=== PATIENT | male | born 1960 | race Caucasian/White ===

== ENCOUNTER 2023-12-05 10:40 | Emergency (ER) | payer OTHER, SELFPAY ==
[2023-12-05 10:54] VITALS: BP 131/79; PULSE 55; TEMP 36.9; O2SAT 99; BMI 23.4
--- NOTE | 2023-12-05 11:02 | XR_ITS ---
The [address] [address] Patient Name: FITZ RUVALCABA MRN: [id number] date: 1960 Sex: M Assigned Patient Location: ER Current Patient Location: ER Accession/Order Number: [id number] Exam Date: 12/05/2023 11:05 Report Date: 12/05/2023 11:22 At the request of: TAY DINERO Procedure: XR hand RT 2V PROCEDURE: XR hand RT 2V HISTORY: foreign body hand thumb COMPARISON: None. FINDINGS: BONES:Multifocal mild degenerative joint disease. No fracture, dislocation, bone lesion. SOFT TISSUES:No radiopaque foreign body with specific attention to pulmonary hand at base of thumb. EFFUSION:None visible. OTHER: Negative. XR/XR hand RT 2V IMPRESSION: 1. No radiopaque foreign body. Electronically authenticated by: MICHAEL FARRELL Date: 12/05/2023 11:22
[2023-12-05] MEDS: LIDOCAINE HCL 1% 100 MG/10 ML MDV INJ (12:48)
[2023-12-05] MEDS: ADACEL DIPH,PERTUSS(ACELL),TET VAC/PF 0.5 ML ADULT SYRINGE IM (13:37)
--- NOTE | 2023-12-05 15:09 | ED_ITS ---
HPI - Skin/Abscess/Foreign Bdy General Chief complaint: Skin/Abscess/Foreign Body Stated complaint: SPLINTER, RIGHT HAND Time Seen by Provider: 12/05/23 11:00 Source: patient Mode of arrival: walk-in Limitations: no limitations History of Present Illness HPI narrative: The patient is coming to the ER after he had a splinter inside his hand when he was cutting some wood saturday 4 days ago . The patient does not remember the last time he had a tetanus booster He is complaining of pain at the site he did try taking it off by himself by using a knife Related Data Previous Rx's ?Medication ?Instructions ?Recorded amoxicillin 875 mg-potassium 1 tab PO BID #14 tabs 12/05/23 clavulanate 125 mg tablet ibuprofen 600 mg tablet 600 mg PO Q8H PRN pain #20 tabs 12/05/23 Allergies Allergy/AdvReac Type Severity Reaction Status Date / Time No Known Drug Allergies Allergy Verified 12/05/23 10:54 Review of Systems ROS Status of ROS 10 or more systems reviewed and unremark able except as noted in history and below PFSH PFSH Social History Little interest or pleasure in doing things: not at all Feeling down, depressed, or hopeless: not at all Exam Narrative Exam Narrative: Nurses notes and vital signs reviewed and patient is not hypoxic. Right hand examination: Patient have tenderness upon palpation of the area just proximal to the metacarpophalangeal joint of the first finger and the patient have an area of hardening of the skin and tenderness, with a entrance wound General: Well-appearing and in no apparent distress. Skin: Warm, dry, no pallor noted. No rash. Head: Normocephalic, atraumatic. Neck: Supple, non-tender. Eye: Pupils are equal, round and EOMI. No scleral icterus. Ears, Nose, Mouth, and Throat: TM are clear, no nasal mucosal hypertrophy. Oral mucosa is moist, no posterior oropharynx erythema, uvula is mid-line Cardiovascular: Regular Rate and Rhythm without murmur, gallop or rub. Respiratory: No accessory muscle use or respiratory distress. Lungs are clear to auscultation, no wheezing, rales or rhonchi Chest Wall: no tenderness Back: No midline thoracic or lumbar vertebral tenderness. No CVA tenderness Musculoskeletal: normal ROM, no calf or popliteal tenderness, no lower extremity edema/swelling GI: Abdomen is soft, non-distended. Normal bowel sounds. No masses appreciated. No tenderness to palpation. No rebound, guarding, or rigidity noted. Neurological: A&O x4. No cranial nerve dysfunction observed. No truncal ataxia. Moves all extremities. Sensation intact. Psychiatric: Cooperative and interactive. Normal mood and affect. Constitutional Vital Signs, click to edit/add: Last Vital Signs Temp 98.5 F 12/05/23 10:54 Pulse 55 L 12/05/23 10:54 Resp 18 12/05/23 10:54 BP 131/79 12/05/23 10:54 Pulse Ox 99 12/05/23 10:54 O2 Del Method Room Air 12/05/23 10:54 Course Vital Signs Vital signs: Vital Signs Temperature 98.5 F 12/05/23 10:54 Pulse Rate 55 L 12/05/23 10:54 Respiratory Rate 18 12/05/23 10:54 Blood Pressure 131/79 12/05/23 10:54 Pulse Oximetry 99 12/05/23 10:54 Oxygen Delivery Method Room Air 12/05/23 10:54 Temperature 98.5 F 12/05/23 10:54 Pulse Rate 55 L 12/05/23 10:54 Respiratory Rate 18 12/05/23 10:54 Blood Pressure 131/79 12/05/23 10:54 Pulse Oximetry 99 12/05/23 10:54 Oxygen Delivery Method Room Air 12/05/23 10:54 MDM - Skin/Abscess/Foreign Bdy MDM Narrative Medical decision making narrative: The x-ray did not show any acute pathology but the patient describing wood Ultrasound at the bedside showed that the patient still have a foreign body it is located in a almost 1.5 cm After cleaning the area with Betadine and applying 1% lidocaine with no epinephrine A small 0.5 cm cut at the entrance wound was obtained , still not showing the foreign body Dressing applied and Maikol wrap as well The patient was started on Augmentin and tetanus booster The patient case was discussed with Dr. Gaitan and right now the patient will be going for surgery tomorrow in [place] office at 8 AM The patient was instructed about the importance of follow-up tomorrow morning to remove the foreign body and he understands He is to come back in case of any fever or increasing pain to the ER Discharge Plan Discharge Chief Complaint: Skin/Abscess/Foreign Body Clinical Impression: Cellulitis, Foreign body hand Patient Disposition: Home, Self-Care Time of Disposition Decision: 13:12 Condition: Good Prescriptions / Home Meds: New amoxicillin-pot clavulanate 875-125 mg tablet 1 tab PO BID Qty: 14 0RF ibuprofen 600 mg tablet 600 mg PO Q8H PRN (Reason: pain) Qty: 20 0RF Print Language: Albanian Instructions: Cellulitis (ED) Referrals: Holger Alcocer DO [Primary Care Provider] - 1 week Santo Gaitan MD [Physician] - As soon as possible (please follow up with [place] office [address], [place] [address] at 8 AM ) Discharge Date/Time: 12/05/23 13:45
== END 2023-12-05 13:45 | disposition home or self-care (01) ==
PROVIDERS: Emergency Provider Emergency Medicine; PCP Family Medicine
DX: S60.551A Superficial foreign body of right hand, initial encounter (principal); L03.113 Cellulitis of right upper limb; W45.8XXA Other foreign body or object entering through skin, initial encounter; Z23 Encounter for immunization
CPT/HCPCS: 73120; 90471; 90715; 99283